=== PATIENT | female | born 1995 | race Caucasian/White ===

== ENCOUNTER 2020-11-10 14:01 | Outpatient (CLI) | payer BC, OTHER ==
[~2020-11-10 14:01] MED LIST: BENTYL 20MG TAB20 MG PO; COLACE 100MG C100 MG PO; FERROUS SULFAT325 M2 PO; IBUPROFEN600 MG PO; LORTAB 5-325 M1 EACH PO; MACROBID 100 M100 MG PO; PRENATABS RX T1 EACH PO; REGLAN10 MG PO
[2020-11-10 14:54] LABS: HEMOGLOBIN 8.1 gm/dl (12.3-15.3); RED BLOOD COUNT 3.96 M/UL (4.00-5.10); WHITE BLOOD COUNT 7.7 K/UL (4.5-11.0)
[2020-11-11] MEDS ORDERED: PRENATABS FA T1 EACH PO (10:52)
== END 2020-11-10 14:58 | disposition home or self-care (01) ==
LOC: GENOP 14:01
PROVIDERS: Obstetrics & Gynecology
DX: Z53.8 Procedure and treatment not carried out for other reasons (principal)
CPT/HCPCS: 36415; 81001; 85025

== ENCOUNTER 2020-11-11 07:30 | Inpatient (IN) | payer BC, OTHER ==
[~2020-11-11] VITALS: Ht 162.6 cm; Wt 90.7 kg
[2020-11-11] MEDS ORDERED: PRENATABS FA T1 EACH PO (10:52)
[2020-11-12 06:01] LABS: HEMOGLOBIN 6.6 gm/dl (12.3-15.3)
[2020-11-13 03:07] LABS: HEMOGLOBIN 6.4 gm/dl (12.3-15.3)
== END 2020-11-13 16:24 | disposition home or self-care (01) | DRG 788 ==
LOC: OB 10:00
PROVIDERS: Obstetrics & Gynecology; ADMIT Obstetrics & Gynecology
PROC: 6A550ZT Pheresis of Cord Blood Stem Cells, Single (ICD-10-PCS; 2020-11-11)
PROC: 10D00Z1 Extraction of Products of Conception, Low, Open Approach (ICD-10-PCS; principal; 2020-11-11 07:30)
DX: O34.211 Maternal care for low transverse scar from previous cesarean delivery (principal); N85.8 Other specified noninflammatory disorders of uterus; Z3A.39 39 weeks gestation of pregnancy; Z37.0 Single live birth; O99.344 Other mental disorders complicating childbirth; F41.9 Anxiety disorder, unspecified; F32.9 Major depressive disorder, single episode, unspecified; O99.334 Smoking (tobacco) complicating childbirth; F17.210 Nicotine dependence, cigarettes, uncomplicated; Z88.8 Allergy status to other drugs, medicaments and biological substances; Z28.21 Immunization not carried out because of patient refusal
CPT/HCPCS: 36415; 81001; 82800; 85014; 85018; 85025; 86850; 86900; 86901; 90715; C9113; J0595; J0690; J1885; J2274; J2405; J2590; J3010; J7120